=== PATIENT | male | born 1940 | race Caucasian/White ===

== ENCOUNTER 2018-09-25 18:39 | Emergency (ER) | payer OTHER, MEDICARE ==
[2018-09-25 18:47] VITALS: TEMP 98.4
[2018-09-25] MEDS ORDERED: SODIUM CHLORIDE 0.9% 1,000 ML IV STA ×2 (19:35)
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
[2018-09-25 20:27] LABS: Basophils % (A) 1 %; Eosinophils # (A) 0.3 k/uL (0-0.7); Eosinophils % (A) 4 %; HGB 13.3 gm/dL (13.0-17.5); Lymphocytes # (A) 0.9 k/uL (1.0-4.8); Lymphocytes % (A) 13 %; MCH 28.1 pg (25.0-35.0); MCHC 32.3 g/dL (31.0-37.0); Mean Platelet Volume 7.4; Monocytes # (A) 0.4 k/uL (0-1.0); Monocytes % (A) 5 %; Neutrophils # (A) 5.1 k/uL (1.3-7.7); Neutrophils % (A) 76 %; Platelet Count 221 k/uL (150-450); RBC 4.71 m/uL (4.30-5.90); RDW 15.6 % (11.5-15.5); WBC 6.8 k/uL (3.8-10.6)
[2018-09-25 20:38] LABS: Partial Thromboplastin Time 23.5 sec (22.0-30.0); Prothrombin Time 10.2 sec (9.0-12.0)
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
[2018-09-25 20:40] LABS: ALT 18 U/L (21-72); AST 23 U/L (17-59); Alkaline Phosphatase 67 U/L (38-126); Anion Gap 9 mmol/L; Blood Urea Nitrogen 24 mg/dL (9-20); Calcium 9.3 mg/dL (8.4-10.2); Carbon Dioxide 33 mmol/L (22-30); Chloride 99 mmol/L (98-107); Glucose 85 mg/dL (74-99); Potassium 4.7 mmol/L (3.5-5.1); Sodium 141 mmol/L (137-145); Total Bilirubin 1.5 mg/dL (0.2-1.3); Total Protein 7.4 g/dL (6.3-8.2)
[2018-09-25] MEDS ORDERED: HYDROcodone/APAP 5-325MG 1 EACH TAB PO STA (20:48)
[2018-09-25] MEDS ORDERED: KETOROLAC 30 MG/ML 1 ML VIAL IVP STA (20:48)
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
[2018-09-25] MEDS ORDERED: LORATADINE 10 MG TAB PO STA (21:54)
[2018-09-25 22:17] VITALS: BP 148/81; PULSE 74; RESP 17
== END 2018-09-25 22:25 | disposition home or self-care (01) ==
LOC: EC 18:39
DX: S20.212A Contusion of left front wall of thorax, initial encounter (principal); S30.1XXA Contusion of abdominal wall, initial encounter; S80.02XA Contusion of left knee, initial encounter; S80.01XA Contusion of right knee, initial encounter; S00.432A Contusion of left ear, initial encounter; S10.93XA Contusion of unspecified part of neck, initial encounter; I11.0 Hypertensive heart disease with heart failure; I50.9 Heart failure, unspecified; E11.9 Type 2 diabetes mellitus without complications; E78.5 Hyperlipidemia, unspecified; N42.9 Disorder of prostate, unspecified; Z88.0 Allergy status to penicillin; Z79.84 Long term (current) use of oral hypoglycemic drugs; Z79.899 Other long term (current) drug therapy; V49.49XA Driver injured in collision with other motor vehicles in traffic accident, initial encounter; Y92.410 Unspecified street and highway as the place of occurrence of the external cause
CPT/HCPCS: 99284; 96374; 96361 ×2; 36415; 93005; 86900; 86901; 80053; 84484; 85025; 85610; 85730; 86850; 73562; 72040; 72170; 71046; J1885